=== PATIENT | male | born 1995 | race Caucasian/White ===

== ENCOUNTER 2018-02-02 09:01 | Emergency (ER) | payer OTHER, BC ==
[~2018-02-02 09:01] MED LIST: NOHOMEMEDS
[2018-02-02 09:27] LABS: BASOPHIL (%) 0.3 % (0-1); EOSINOPHIL (%) 11.4 % (0-5); EOSINOPHIL COUNT 1.1 K/uL (0-0.3); HEMATOCRIT 49.2 % (38.0-50.0); HEMOGLOBIN 17.5 G/DL (12.5-16.6); IMMATURE GRANULOCYTE (%) 0.8 % (0.0-0.7); LYMPHOCYTE (%) 17.4 % (15-42); LYMPHOCYTE COUNT 1.6 K/uL (1.0-2.8); MCHC 35.6 G/DL (30.0-36.0); MCV 87.1 FL (86-99); MONOCYTE (%) 5.2 % (3-12); MONOCYTE COUNT 0.5 K/uL (0-0.8); NEUTROPHIL (%) 64.9 % (45-76); PLATELET COUNT 155 K/uL (156-360); RBC DIS.WIDTH-CV 11.9 % (11.8-14.6); RED BLOOD COUNT 5.65 M/uL (4.00-5.50); WHITE BLOOD COUNT 9.3 K/uL (4.1-10.2)
[2018-02-02 09:40] LABS: AMYLASE 75 IU/L (1-118); CHLORIDE 106 mEq/L (99-109); SODIUM 142 mEq/L (136-147)
[2018-02-02 09:41] LABS: GLUCOSE 97 mg/dL (70-99)
[2018-02-02 09:44] LABS: SERUM ETHYL ALCOHOL < 10 mg/dL
[2018-02-02 09:45] LABS: GFR ESTIMATE (CALCULATED) > 59 mL/min/ (58.99-99999)
[2018-02-02 09:46] LABS: UREA NITROGEN (BUN) 15 mg/dL (9-23)
[2018-02-02 09:48] LABS: LIPASE 29 U/L (1.0-51.0)
[2018-02-02 10:19] LABS: CREATINE KINASE 150 IU/L (1-294)
[2018-02-02 14:20] LABS: APPEARANCE CLEAR ((CLEAR)); BILIRUBIN NEGATIVE; BLOOD MODERATE; COLOR STRAW ((YELLOW)); GLUCOSE (STRIP) NEGATIVE; KETONES NEGATIVE; LEUKOCYTES NEGATIVE; NITRITE NEGATIVE; PROTEIN (STRIP) NEGATIVE; SPECIFIC GRAVITY 1.032 (1.000-1.030); UROBILINOGEN 0.2 MG/DL (0.2-1.0)
[2018-02-02 14:26] LABS: BACTERIA NONE SEEN /HPF; EPITHELIAL CELLS RARE /HPF; MUCUS TRACE /LPF; RED BLOOD CELLS 0-5 /HPF (0-5); UCUL ADDED? NO; WHITE BLOOD CELLS 0-5 /HPF (0-5)
[2018-02-02 14:55] LABS: AMPHETAMINE NEGATIVE (500 ng/mL); BARBITURATES NEGATIVE (200 ng/mL); BENZODIAZEPINES NEGATIVE (150 ng/mL); BUPRENORPHINE NEGATIVE (10 ng/mL); COCAINE NEGATIVE (150 ng/mL); METHADONE NEGATIVE (200 ng/mL); METHAMPHETAMINE NEGATIVE (500 ng/mL); OPIATES (MORPHINE) NEGATIVE (100 ng/mL); OXYCODONE NEGATIVE (100 ng/mL); PHENCYCLIDINE NEGATIVE (25 ng/mL); PROPOXYPHENE NEGATIVE (300 ng/mL); THC CANNABINOIDS NEGATIVE (50 ng/mL); TRICYCLIC ANTIDEPRESSANTS NEGATIVE (300 ng/mL)
== END 2018-02-02 14:35 | disposition short-term general hospital (02) ==
LOC: TRA 09:01
PROVIDERS: Emergency Medicine
DX: S12.490A Other displaced fracture of fifth cervical vertebra, initial encounter for closed fracture (principal); S32.038A Other fracture of third lumbar vertebra, initial encounter for closed fracture; J93.83 Other pneumothorax; T79.7XXA Traumatic subcutaneous emphysema, initial encounter; S09.90XA Unspecified injury of head, initial encounter; M54.2 Cervicalgia; M25.521 Pain in right elbow; S40.211A Abrasion of right shoulder, initial encounter; S30.810A Abrasion of lower back and pelvis, initial encounter; W11.XXXA Fall on and from ladder, initial encounter; Y93.H3 Activity, building and construction
CPT/HCPCS: 70450; 71045; 71260; 72125; 72129; 72132; 72170; 73080; 74177; 80048; 81003; 82150; 82550; 83690; 85025; 86850; 86900; 86901; 93005; 99281; 99285; G0480; J2405; J3010; J7120